=== PATIENT | male | born 1975 | race American Indian/Alaskan Native ===

== ENCOUNTER 2016-12-24 17:35 | Emergency (ER) | payer SELFPAY ==
[2016-12-24 17:40] VITALS: BP 132/92
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
[2016-12-24] MEDS ORDERED: TORADOL IM ONE (18:33)
--- NOTE | 2016-12-24 19:01 | XRay Report ---
FINAL REPORT EXAM: XR SPINE THORACIC 3V HISTORY: thoracic pain TECHNIQUE: Thoracic spine three views 3 images PRIORS: None. FINDINGS: In the AP view there is a metallic density structure projecting over cardiac silhouette that measures approximately 13 millimeters. This is not seen in the other views. Vertebral body height is preserved. No acute fracture or anterolisthesis is identified. Intervertebral disc height is preserved. IMPRESSION: 1. No acute osseous abnormality is identified. 2. Metallic density structure is seen projecting over left herve thorax in the AP view. This is not seen in the lateral projection. This could represent foreign body, but may be external to the patient. There are currently no studies available for direct comparison.
== END 2016-12-24 19:48 | disposition home or self-care (01) ==
LOC: ED 17:35
DX: M62.830 Muscle spasm of back (principal); F17.200 Nicotine dependence, unspecified, uncomplicated
CPT/HCPCS: 72072; 96372; 99283; J1885

== ENCOUNTER 2021-06-11 19:59 | Emergency (ER) | payer SELFPAY ==
[2021-06-11] MEDS ORDERED: ONDANSETRON 4 MG/2 ML INJ IV ONE (20:07)
[2021-06-11] MEDS ORDERED: SODIUM CHLORIDE 0.9% 1000 ML 1,000 ML IV ONE (20:07)
[2021-06-11] MEDS ORDERED: MORPHINE 4 MG/1 ML INJ IV ONE (20:07)
[2021-06-11] MEDS ORDERED: FAMOTIDINE 20 MG/2 ML INJ IV ONE (20:07)
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
[2021-06-11 21:07] LABS: Basophils # (Auto) 0.1 K/mm3 (0.0-0.1); Basophils % (Auto) 1.4 % (0.0-1.8); Eosinophils # (Auto) 0.1 K/mm3 (0.0-0.4); Eosinophils % (Auto) 2.8 % (0.0-4.3); Hematocrit 45.2 % (35.5-45.6); Hemoglobin 14.5 gm/dl (11.8-15.2); Lymphocytes # (Auto) 1.9 K/mm3 (1.2-5.4); Mean Corpuscular HGB Conc 32 % (32-34); Mean Corpuscular Volume 86 fl (84-94); Monocytes # (Auto) 0.6 K/mm3 (0.0-0.8); Monocytes % (Auto) 13.8 % (0.0-7.3); Platelet Count 316 K/mm3 (140-440); Red Blood Count 5.28 M/mm3 (3.65-5.03); Red Cell Distribution Width 15.9 % (13.2-15.2)
[2021-06-11 21:30] LABS: Alanine Aminotransferase 19 units/L (7-56); Albumin 4.8 g/dL (3.9-5); BUN/Creatinine Ratio 15; Blood Urea Nitrogen 12 mg/dL (9-20); Calcium 9.6 mg/dL (8.4-10.2); Hemolysis Index 5
[2021-06-11 23:42] LABS: Bilirubin,Urine NEG (Negative); Blood,Urine SM (Negative); Color,Urine Yellow (Yellow); Mucus,Urine FEW /HPF; Protein,Urine <15 mg/dL mg/dL (Negative); Urobilinogen,Urine < 2.0 mg/dL (<2.0)
[2021-06-12 00:57] VITALS: BP 153/90
== END 2021-06-12 00:58 | disposition home or self-care (01) ==
LOC: ED 19:59
DX: K21.9 Gastro-esophageal reflux disease without esophagitis (principal); E86.0 Dehydration; K29.20 Alcoholic gastritis without bleeding; G89.29 Other chronic pain; Z79.899 Other long term (current) drug therapy
CPT/HCPCS: 36415; 80053; 81001; 83690; 85025; 96361; 96374; 96375; 99283; J2270; J2405; J3490; J7030; Q0162

== ENCOUNTER 2021-08-07 09:10 | Emergency (ER) | payer SELFPAY ==
[2021-08-07] MEDS ORDERED: ONDANSETRON 4 MG/2 ML INJ IV ONE (09:29)
[2021-08-07] MEDS ORDERED: fentaNYL 100 MCG/2 ML INJ IV ONE (09:29)
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
[2021-08-07 10:22] LABS: Hematocrit 40.9 % (35.5-45.6); Hemoglobin 13.2 gm/dl (11.8-15.2); Mean Corpuscular HGB Conc 32 % (32-34); Mean Corpuscular Volume 85 fl (84-94); Platelet Count 272 K/mm3 (140-440); Red Cell Distribution Width 15.4 % (13.2-15.2)
[2021-08-07 10:38] LABS: BUN/Creatinine Ratio 22; Blood Urea Nitrogen 20 mg/dL (9-20); Calcium 9.1 mg/dL (8.4-10.2); Hemolysis Index 2
[2021-08-07] MEDS ORDERED: HALOPERIDOL LACTATE 5 MG/1 ML INJ IV ONE (10:52)
[2021-08-07 11:12] LABS: Bacteria,Urine 1+ /HPF (Negative); Bilirubin,Urine NEG (Negative); Blood,Urine SM (Negative); Color,Urine Yellow (Yellow); Mucus,Urine 2+ /HPF; Urobilinogen,Urine < 2.0 mg/dL (<2.0)
--- NOTE | 2021-08-07 11:34 | Cat Scan Report ---
CT ABDOMEN AND PELVIS WITHOUT CONTRAST INDICATION / CLINICAL INFORMATION: kidney stone. TECHNIQUE: Axial CT images were obtained through the abdomen and pelvis without IV contrast. All CT scans at this location are performed using CT dose reduction for ALARA by means of automated exposure control. COMPARISON: None available. FINDINGS: LOWER CHEST: No significant abnormality LIVER: No significant abnormality GALLBLADDER/BILIARY TREE: No significant abnormality PANCREAS: No significant abnormality SPLEEN: No significant abnormality ADRENALS: No significant abnormality KIDNEYS / URETER: No significant abnormality. No urolithiasis or hydronephrosis. URINARY BLADDER: The bladder is distended without wall thickening. REPRODUCTIVE ORGANS: No significant abnormality STOMACH / BOWEL: Small bowel is normal in caliber. The colon is unremarkable. The appendix is normal in caliber. LYMPH NODES: No significant adenopathy. VASCULATURE: No significant abnormality. OTHER: No free air, free fluid, or focal fluid collection is identified. SKELETAL SYSTEM: No acute osseous findings. IMPRESSION: 1. The bladder is markedly distended without significant wall thickening. This is nonspecific and of uncertain etiology. 2. No other acute abnormality of the abdomen or pelvis. No urolithiasis or hydronephrosis. Signer Name: Perry Dan MD Signed: 08/07/2021 11:29 AM Workstation Name: [id number]
[2021-08-07] MEDS ORDERED: LIDOCAINE 2% UROJECT 10 ML JELLY UR ONE (12:00)
[2021-08-07 15:01] VITALS: BP 99/55
== END 2021-08-07 15:02 | disposition home or self-care (01) ==
LOC: ED 09:10
DX: N30.90 Cystitis, unspecified without hematuria (principal); F17.200 Nicotine dependence, unspecified, uncomplicated
CPT/HCPCS: 36415; 51702; 74176; 80048; 81001; 85027; 87086; 96374; 96375; 99284; J1630; J2405; J3010

== ENCOUNTER 2021-08-10 10:04 | Emergency (ER) | payer SELFPAY ==
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
[2021-08-10 11:49] VITALS: BP 130/70
== END 2021-08-10 11:00 | disposition home or self-care (01) ==
LOC: ED 10:04
DX: R33.9 Retention of urine, unspecified (principal); F17.200 Nicotine dependence, unspecified, uncomplicated
CPT/HCPCS: 99282